=== PATIENT | male | born 1955 | race American Indian/Alaskan Native ===

== ENCOUNTER 2018-06-15 03:49 | Emergency (ER) | payer OTHER ==
--- NOTE | 2018-06-15 03:59 | ED PDOC ---
HPI: General Adult Time Seen by Provider: 06/15/18 03:58 Chief Complaint (Nursing): Abnormal Skin Integrity Chief Complaint (Provider): hand laceration History Per: Patient Additional Complaint(s): 63-year-old [id number] male presents with laceration to left index finger sustained at work when patient accidentally cut finger with a utility knife. Patient applied pressure dressing and came right to ED. He is not sure of last tetanus shot. He denies numbness or tingling to affected area. PMD: in [facility] Past Medical History Reviewed: Historical Data, Nursing Documentation, Vital Signs Vital Signs: Last Vital Signs Temp 98.6 F 06/15/18 03:58 Pulse 81 06/15/18 03:58 Resp 18 06/15/18 03:58 BP 134/88 06/15/18 03:58 Pulse Ox 98 06/15/18 04:14 - Medical History PMH: No Chronic Diseases - Surgical History Surgical History: Hernia Repair - Family History Family History: States: No Known Family Hx - Living Arrangements Living Arrangements: With Family - Social History Current smoker - smoking cessation education provided: No Alcohol: None Drugs: Denies - Immunization History Hx Tetanus Toxoid Vaccination: No (not sure of last tetanus booster) - Home Medications Home Medications: Ambulatory Orders Medication Instructions Recorded No Known Home Med [No Known Home 04/01/15 Med] - Allergies Allergies/Adverse Reactions: Allergies Allergy/AdvReac Type Severity Reaction Status Date / Time No Known Allergies Allergy Verified 06/15/18 04:04 Review of Systems ROS Statement: Except As Marked, All Systems Reviewed And Found Negative Musculoskeletal: Positive for: Other (left hand laceration) Physical Exam - Reviewed Nursing Documentation Reviewed: Yes Vital Signs Reviewed: Yes - Physical Exam Appears: Positive for: Well, Non-toxic, No Acute Distress Skin: Positive for: Normal Color. Negative for: Rash Eye Exam: Positive for: Normal appearance Extremity: Positive for: Other (2 cm laceration noted to dorsal aspect of left index finger proximally, mild active bleeding, N/V intact) Neurologic/Psych: Positive for: Alert, Oriented - ECG O2 Sat by Pulse Oximetry: 98 Pulse Ox Interpretation: Normal Medical Decision Making Medical Decision Makin63 year old with left hand laceration Plan: Lac repair Adacel IM See procedure note. Wound care instructions given. Procedures - Laceration/Wound Repair left index finger Wound Length (cm): 2 Wound's Depth, Shape: superficial Wound Explored: clean Betadine Prep?: Yes Anesthesia: 1% Lidocaine Volume Anesthetic (ccs): 6 Wound Debrided: minimal Wound Repaired With: Sutures Suture Size/Type: 5:0, nylon (continuous running suture) Wound Complexity: Simple Sterile Dressing Applied?: Yes Splint Applied?: No Disposition - Clinical Impression Clinical Impression: Finger laceration, Requires a booster tetanus - Patient ED Disposition Is Patient to be Admitted: No Counseled Patient/Family Regarding: Diagnosis, Need For Followup - Disposition Referrals: [facility] [Outside] Disposition: Routine/Home Disposition Time: 04:57 Condition: STABLE Additional Instructions: Keep wound clean and dry. Wash daily with soap and water. Tylenol or Advil for pain as needed. Wound check 2-3 days, suture removal 10-14 days. Instructions: Laceration Repair With Stitches (DC), Diphtheria and Tetanus Toxoids, and Acellular Pertussis Vaccine Forms: [facility] [facility] ([place]), [facility] ED School/Work Excuse
[2018-06-15 04:05] VITALS: BMI 34.4
[2018-06-15] MEDS ORDERED: Lidocaine 1% w Epi 1:100,000 Inj ONE (04:08)
[2018-06-15] MEDS ORDERED: Tdap Vaccine 0.5 ml Vial (10-64 yrs) IM ONE ×2 (04:11→04:32)
[2018-06-15] MEDS ORDERED: Povidone Iodine Topical 10% Sol ONE (04:19)
[2018-06-15 05:32] VITALS: BP 143/92; PULSE 77; RESP 14; TEMP 98; O2SAT 99
== END 2018-06-15 05:08 | disposition home or self-care (01) ==
LOC: H.ER 03:49
DX: S61.211A Laceration without foreign body of left index finger without damage to nail, initial encounter (principal); W26.0XXA Contact with knife, initial encounter; Y99.0 Civilian activity done for income or pay